=== PATIENT | female | born 1995 | race African-American/Black ===

== ENCOUNTER 2019-04-13 21:33 | Emergency (ER) | payer MEDICAID, OTHER ==
[2019-04-13] MEDS ORDERED: NORMAL SALINE 1000 ML 1,000 ML IV ONE (22:24)
[2019-04-13] MEDS ORDERED: METOCLOPRAMIDE HCL INJ/PF 10 MG/2 ML SDV IV ONE (22:24)
[2019-04-13] MEDS ORDERED: DIPHENHYDRAMINE HCL 50 MG/ML VIAL IV ONE (22:25)
[2019-04-13 23:02] LABS: ABSOLUTE MONOCYTES (AUTO) 0.5 10^3/uL (0.1-1.4); ABSOLUTE NEUT (AUTO) 3.5 10^3/uL (1.7-8.2); BASOPHILS % (AUTO) 0.4 % (0-2); EOSINOPHILS % (AUTO) 0.6 % (0-6); HEMATOCRIT 34.3 % (36.0-47.0); LYMPHOCYTES % (AUTO) 20.1 % (13-45); MEAN CORPUSCULAR HEMOGLOBIN 27.4 pg (27.0-33.4); MEAN CORPUSCULAR HGB CONC 32.1 g/dL (32.0-36.0); MEAN CORPUSCULAR VOLUME 85 fl (80-97); MONOCYTES % (AUTO) 9.1 % (3-13); PLATELET COUNT 156 10^3/uL (150-450); RED BLOOD COUNT 4.02 10^6/uL (3.72-5.28); RED CELL DISTRIBUTION WIDTH 14.2 % (11.5-14.0); SEGMENTED NEUTROPHILS % (AUTO) 69.8 % (42-78); TOTAL CELLS COUNTED % (AUTO) 100 %
--- NOTE | 2019-04-13 23:16 | RADIOLOGY REPORT (SQ) ---
EXAM DESCRIPTION: CT HEAD ANGIOGRAPHY WITHOUT THEN WITH IV CONTRAST COMPLETED DATE/TME: 04/13/2019 22:24 CLINICAL HISTORY: 24 years, Female, headache, syncope COMPARISON: None. TECHNIQUE: CT angiography of the head was performed both prior to and after the uneventful administration of intravenous contrast. Coronal and sagittal reformations were created. This includes coronal and sagittal MIPS. Images stored on PACS. All CT scanners at this facility use dose modulation, iterative reconstruction, and/or weight based dosing when appropriate to reduce radiation dose to as low as reasonably achievable (ALARA). [facility]: Dose Right [facility]: CareDose [facility]: Dose Right [facility]: Teradose 4D [facility]: Smart NIMBOXX LIMITATIONS: None. FINDINGS: Noncontrast CT head: Brain parenchyma is normal in attenuation. No acute intracranial hemorrhage, mass effect, or extra-axial fluid is seen. The ventricles, sulci, and basilar cisterns are normal in size and configuration. Globes and orbits are normal. Paranasal sinuses and mastoid air cells are clear. There are no depressed skull fractures. CTA HEAD: Visualized cervical portions of the internal carotid arteries demonstrate normal contrast opacification, course, contour, and caliber. Likewise, the bilateral intracranial internal carotid arteries also demonstrate normal contrast opacification, course, contour, and caliber. The bilateral middle cerebral and anterior cerebral arteries appear normal. Bilateral vertebral arteries opacify with contrast normally, as does the basilar artery and both posterior cerebral arteries. Major dural venous sinuses opacify with contrast normally. Visualized portions of the cervical spine reveal no suspicious anomaly. IMPRESSION: Noncontrast CT head: No acute intracranial abnormality. CTA HEAD: Essentially normal CTA of the head. TECHNICAL DOCUMENTATION: Quality ID # [id number]: Final reports with documentation of one or more dose reduction techniques (e.g., Automated exposure control, adjustment of the mA and/or kV according to patient size, use of iterative reconstruction technique) copyright 2010 [employer]- All Rights Reserved
[2019-04-13 23:21] LABS: ANION GAP 9 (5-19); BLOOD UREA NITROGEN 14 mg/dL (7-20); CALCIUM 9.1 mg/dL (8.4-10.2); CARBON DIOXIDE 23 mmol/L (22-30); CHLORIDE 105 mmol/L (98-107); GLUCOSE 103 mg/dL (75-110); POTASSIUM 3.5 mmol/L (3.6-5.0)
--- NOTE | 2019-04-14 00:02 | ER Document Report ---
ED General - General Chief Complaint: Fainting Stated Complaint: SYNCOPE Time Seen by Provider: 04/13/19 22:00 Primary Care Provider: DEYA LO MD [NO LOCAL MD] - Follow up in 3-5 days Notes: Patient is a pleasant 21-year-old female with a history of migraine headaches. She presents with a syncopal episode while at [employer]. Patient says that she has had passing out episodes with previous headaches. Says headache was gradual onset but became worse when she was at [employer] and then she passed out. She is never had imaging her brain in the move her recurrent headaches. She denies any vomiting. No fevers. No focal weakness or numbness. When paramedics arrived she was unresponsive. They did give her Narcan but she did not awake with this and therefore they did a moaning inhalants which she did arouse to. Patient says headache is all over in her head. She said this is typical of her migraines. She has no other complaints at this time. Headache started approximately 3 hours prior to arrival. TRAVEL OUTSIDE OF THE [place] IN LAST 30 DAYS: No - Related Data Allergies/Adverse Reactions: No Known Allergies Allergy (Unverified 04/13/19 23:31) Past Medical History - Social History Smoking Status: Never Smoker Chew tobacco use (# tins/day): No Frequency of alcohol use: None Drug Abuse: Marijuana Family History: Reviewed & Not Pertinent Patient has suicidal ideation: No Patient has homicidal ideation: No Renal/ Medical History: Denies: Hx Peritoneal Dialysis Review of Systems - Review of Systems Notes: My Normal Review Basic REVIEW OF SYSTEMS: CONSTITUTIONAL : Denies fever, chills, or sweats. Denies recent illness. CARDIOVASCULAR: Denies chest pain. RESPIRATORY: Denies cough, cold, or chest congestion. Denies shortness of breath, difficulty breathing, or wheezing. GASTROINTESTINAL: Denies abdominal pain. Denies nausea, vomiting, or diarrhea. MUSCULOSKELETAL: Denies neck or back pain or joint pain or swelling. SKIN: Denies rash or skin lesions. NEUROLOGICAL: Syncopal episodes. Has a headache. Denies weakness or paralysis or loss of use of either side. Denies problems with gait or speech. Denies sensory or motor loss. ALL OTHER SYSTEMS REVIEWED AND NEGATIVE. Physical Exam - Vital signs Vitals: Temp Resp BP Pulse Ox 98.8 F 14 132/94 H 100 08/01/19 21:47 04/13/19 21:47 04/13/19 21:47 04/13/19 21:47 - Notes Notes: General Appearance: Well nourished, alert, cooperative, no acute distress, moderate obvious discomfort. Vitals: reviewed, See vital signs table. Head: no swelling or tenderness to the head Eyes: PERRL, EOMI, Conjuctiva clear Mouth: No decreasd moisture Lungs: No wheezing, No rales, No rhonci, No accessory muscle use, good air exchange bilaterally. Heart: Normal rate, Regular rythm, No murmur, no rub Abdomen: Normal BS, soft, No rigidity, No abdominal tenderness, No guarding, no rebound, no abdominal masses, no organomegaly Extremities: strength 5/5 in all extremities, good pulses in all extremities, no swelling or tenderness in the extremities, no edema. Skin: warm, dry, appropriate color, no rash Neuro: speech clear, oriented x 3, normal affect, responds appropriately to questions. Cranial nerves II through XII are intact. Distal sensation intact. Patient moves all extremities without difficulty. Course - Re-evaluation Re-evalutation: 04/14/19 00:28 Patient's headache is completely resolved. She looks and feels well. She has had very similar headaches in the past with passing out before. I was concerned that she has had previous headaches with passing out never had imaging of her head. Was able to get CT of her head within 4 hours of onset of her headache and this was negative and therefore the likelihood of subarachnoid hemorrhage is highly unlikely. Patient is fully neurologically intact and looks well and feels improved and therefore I feel safe to be discharged home. I strongly encouraged her to return to ER immediately if she has recurrent worsening headaches, severe sudden onset headache, vomiting, or recurrent passing out. Ronnie tamez agrees with plan will be discharged home. Significant 0ther is at bedside also agrees with plan. Dictation of this chart was performed using voice recognition software; therefore, there may be some unintended grammatical errors. - Vital Signs Vital signs: Temp Pulse Resp BP Pulse Ox 98.8 F 14 132/94 H 100 04/13/19 21:47 04/13/19 21:47 04/13/19 21:47 04/13/19 21:47 - Laboratory Result Diagrams: 04/13/19 22:45 04/13/19 22:45 Laboratory results interpreted by me: 04/13/19 04/13/19 22:45 22:45 Hgb 11.0 L Hct 34.3 L RDW 14.2 H Sodium 136.9 L Potassium 3.5 L - EKG Interpretation by Me Additional EKG results interpreted by me: 04/14/19 00:01 EKG is reviewed and interpreted by me. EKG shows sinus bradycardia with rate of [address] segment elevation or depression. No ischemic T wave inversions. AK interval, QRS duration, QT intervals are within normal range. No old EKG available for comparison. Discharge - Discharge Clinical Impression: Headache Qualifiers: Headache type: unspecified Headache chronicity pattern: acute headache Intrac tability: not intractable Qualified Code(s): R51 - Headache Syncope Qualifiers: Syncope type: unspecified Qualified Code(s): R55 - Syncope and collapse Condition: Good Disposition: HOME, SELF-CARE Additional Instructions: Please return to the ER immediately if you have sudden severe onset headache, any passing out with a headache, or have a headache that is not responding to the medication I have prescribed. I prescribed a medication called Reglan. This medication may make you little bit drowsy when you take it and therefore you should not drive after taking it. I have also written down the number to the local neurologist, Dr. Lo. Please follow-up with the neurologist due to your history of recurring headaches. Please have a low threshold to return to ER if you have any further concerns. Prescriptions: Metoclopramide HCl [Reglan 10 mg Tablet] 1 tab PO ASDIR PRN #25 tablet PRN Reason: Forms: Return to Work Referrals: DEYA LO MD [NO LOCAL MD] - Follow up in 3-5 days
[2019-04-14 01:05] VITALS: BP 112/75
--- NOTE | 2019-04-14 14:33 | EKG REPORT ---
SEVERITY:- BORDERLINE ECG - SINUS RHYTHM BORDERLINE RIGHT AXIS DEVIATION BORDERLINE T ABNORMALITIES, ANTERIOR LEADS : Confirmed by: Antoinette Flor MD 14-Apr-2019 14:31:36
== END 2019-04-14 01:05 | disposition home or self-care (01) ==
LOC: ER 21:33
DX: R51 Headache (principal); R55 Syncope and collapse
CPT/HCPCS: 93005; 99284; 96361; 96374; 96375; 36415; 84703; 85025; 80048; 70496; 93010; J1200; J2765; J7030